=== PATIENT | female | born 1955 | race Caucasian/White ===

== ENCOUNTER 2020-11-02 15:53 | Inpatient (IN) | payer MEDICAID, OTHER ==
[~2020-11-02] VITALS: Ht 165.1 cm; Wt 65.0 kg
[2020-11-02] MEDS ORDERED: normal saline 1000ML IV soln IV ONE (16:30)
[2020-11-02] MEDS ORDERED: iohexol 350MG/ML 100ml bottle IV ONE (16:38)
[2020-11-02 17:09] LABS: BASOPHILS % (AUTO) 0.2 % (0-1); EOSINOPHILS % (AUTO) 0 % (0-6); HEMATOCRIT 45.5 % (35.0-45.0); HEMOGLOBIN 15.2 g/dl (12.0-16.0); LYMPHOCYTES # (AUTO) 0.8 X10'3 (1.1-4.8); LYMPHOCYTES % (AUTO) 9.3 % (21-51); MEAN CORPUSCULAR HGB CONC 33.5 g/dL (33.0-36.5); MEAN CORPUSCULAR VOLUME 86.5 FL (78-98); MEAN PLATELET VOLUME 8.1 FL (7.4-10.4); MONOCYTES # (AUTO) 0.7 X10'3 (0-0.9); NEUTROPHILS # (AUTO) 7.2 X10'3 (1.8-7.7); NEUTROPHILS % (AUTO) 82.5 % (42-75); PLATELET COUNT 261 X10'3 (140-440); RED BLOOD COUNT 5.25 X10'6 (4.20-5.60); RED CELL DISTRIBUTION WIDTH 12.9 % (11.5-14.5); WHITE BLOOD COUNT 8.7 X10'3 (4.5-11.0)
[2020-11-02 17:15] LABS: PARTIAL THROMBOPLASTIN TIME 30 SECONDS (22-32)
[2020-11-02 17:27] LABS: ALANINE AMINOTRANSFERASE 100 U/L (12-78); ALBUMIN 3.3 G/DL (3.4-5.0); ALBUMIN/GLOBULIN RATIO 0.7 (1.1-1.5); ALKALINE PHOSPHATASE 140 IU/L (46-116); ANION GAP 9 (8-16); ASPARTATE AMINO TRANSFERASE 122 U/L (10-37); BILIRUBIN,TOTAL 0.6 MG/DL (0.1-1.0); BLOOD UREA NITROGEN 11 MG/DL (7-18); BUN/CREATININE RATIO 14.9 (6.6-38.0); CALCIUM 9.1 MG/DL (8.5-10.1); CHLORIDE 102 MMOL/L (99-107); CREATININE 0.74 MG/DL (0.40-0.90); GLUCOSE 132 MG/DL (70-104); POTASSIUM 3.8 MMOL/L (3.5-5.1); SODIUM 138 MMOL/L (135-145); TOTAL CARBON DIOXIDE 26.9 MMOL/L (24-32); TOTAL PROTEIN 7.9 G/DL (6.4-8.2); eGFR 79 ML/MIN
[2020-11-02] MEDS ORDERED: NO HOME MEDS PO (17:56)
[2020-11-02] MEDS ORDERED: dexamethasone 4mg/ml inj IV SCH (18:55)
[2020-11-02 19:22] LABS: C-REACTIVE PROTEIN 10.32 MG/DL (0.0-0.5); LACTATE DEHYDROGENASE 516 U/L (81-234)
[2020-11-02] MEDS ORDERED: acetaminophen 325mg tablet PO PRN (19:50)
[2020-11-02] MEDS ORDERED: potassium Cl 40MEQ/1/2NS 520ml 520 ML IV PRN ×2 (19:50)
[2020-11-02] MEDS ORDERED: potassium Cl 20 mEq SR tablet PO PRN (19:50)
[2020-11-02] MEDS ORDERED: mag hydrox/Alum hydrox/simeth 30ml oral suspension PO PRN (19:50)
[2020-11-02] MEDS ORDERED: ondansetron/PF 4mg/2ml inj IV PRN (19:50)
[2020-11-02] MEDS ORDERED: magnesium hydroxide 30ml (MOM) UD suspension PO PRN (19:50)
[2020-11-02] MEDS: dexamethasone 4mg/ml inj IV SCH (20:00)
[2020-11-02] MEDS: K and/or MAG REPLACEMENT MC SCH (20:00)
[2020-11-02] MEDS: heparin, porcine 5000 units/ml vial SQ SCH (20:58)
[2020-11-02] MEDS: docusate sod 100mg capsule PO SCH (20:58)
[2020-11-03] MEDS: dexamethasone 4mg/ml inj IV SCH ×3 (02:05→20:11)
--- NOTE | 2020-11-03 03:30 | NUR ---
pt up to commode, had coughing episode. unable to recover 86% on 6L MD called, patient put on non rebreather, 12L given cough syrup per md order.
[2020-11-03] MEDS ORDERED: guaiFENesin/codeine phos 10ml UD oral syrup PO ONE (04:30)
[2020-11-03 04:41] LABS: BASOPHILS % (AUTO) 0.1 % (0-1); EOSINOPHILS % (AUTO) 0 % (0-6); HEMATOCRIT 45.1 % (35.0-45.0); HEMOGLOBIN 14.4 g/dl (12.0-16.0); LYMPHOCYTES # (AUTO) 1.1 X10'3 (1.1-4.8); LYMPHOCYTES % (AUTO) 15.4 % (21-51); MEAN CORPUSCULAR HEMOGLOBIN 28.6 PG (27.0-31.0); MEAN CORPUSCULAR HGB CONC 31.8 g/dL (33.0-36.5); MEAN CORPUSCULAR VOLUME 89.7 FL (78-98); MEAN PLATELET VOLUME 8.1 FL (7.4-10.4); MONOCYTES # (AUTO) 0.3 X10'3 (0-0.9); MONOCYTES % (AUTO) 4.4 % (2-12); NEUTROPHILS # (AUTO) 5.6 X10'3 (1.8-7.7); NEUTROPHILS % (AUTO) 80.1 % (42-75); PLATELET COUNT 228 X10'3 (140-440); RED BLOOD COUNT 5.02 X10'6 (4.20-5.60); RED CELL DISTRIBUTION WIDTH 13.4 % (11.5-14.5)
[2020-11-03 05:24] LABS: ALANINE AMINOTRANSFERASE 95 U/L (12-78); ALBUMIN 2.8 G/DL (3.4-5.0); ALBUMIN/GLOBULIN RATIO 0.6 (1.1-1.5); ALKALINE PHOSPHATASE 128 IU/L (46-116); ANION GAP 15 (8-16); ASPARTATE AMINO TRANSFERASE 91 U/L (10-37); BILIRUBIN,TOTAL 0.4 MG/DL (0.1-1.0); BLOOD UREA NITROGEN 9 MG/DL (7-18); BUN/CREATININE RATIO 11.1 (6.6-38.0); CALCIUM 8.2 MG/DL (8.5-10.1); CHLORIDE 108 MMOL/L (99-107); CREATININE 0.81 MG/DL (0.40-0.90); GLUCOSE 173 MG/DL (70-104); POTASSIUM 3.6 MMOL/L (3.5-5.1); SODIUM 145 MMOL/L (135-145); TOTAL CARBON DIOXIDE 22.3 MMOL/L (24-32); TOTAL PROTEIN 7.2 G/DL (6.4-8.2); eGFR 71 ML/MIN
[2020-11-03] MEDS: docusate sod 100mg capsule PO SCH ×2 (08:00→20:09)
[2020-11-03] MEDS: K and/or MAG REPLACEMENT MC SCH ×3 (08:00→20:00)
[2020-11-03] MEDS: heparin, porcine 5000 units/ml vial SQ SCH ×2 (09:01→20:09)
[2020-11-03] MEDS ORDERED: magnesium Cl slow-release 64mg tablet PO PRN (09:05)
[2020-11-03] MEDS ORDERED: magnesium 4gm in 100ml NS 100 ML IV PRN (09:05)
[2020-11-03 10:00] VITALS: BP 135/79
--- NOTE | 2020-11-03 10:09 | NUR ---
Okay to give daughter information.
--- NOTE | 2020-11-03 13:30 | NUR ---
Patient in room ORTHO 4015. I have received report from NAVEED Schultz and had the opportunity to ask questions and assume patient care.
[2020-11-03 14:00] VITALS: BP 141/73
[2020-11-03 17:00] VITALS: BP 150/80
--- NOTE | 2020-11-03 18:39 | NUR ---
Problems reprioritized. Patient report given, questions answered & plan of care reviewed with NAVEED Chavarria.
--- NOTE | 2020-11-03 18:40 | NUR ---
Patient in room ORTHO 4015. I have received report from rene LUCIO and had the opportunity to ask questions and assume patient care.
[2020-11-03 22:00] VITALS: BP 146/72
[2020-11-04 06:00] VITALS: BP 150/82
--- NOTE | 2020-11-04 06:17 | NUR ---
Problems reprioritized. Patient report given, questions answered & plan of care reviewed with Pauline LUCIO.
[2020-11-04 07:54] LABS: BASOPHILS % (AUTO) 0.1 % (0-1); EOSINOPHILS % (AUTO) 0 % (0-6); HEMATOCRIT 44.3 % (35.0-45.0); HEMOGLOBIN 14.8 g/dl (12.0-16.0); LYMPHOCYTES # (AUTO) 1.2 X10'3 (1.1-4.8); MEAN CORPUSCULAR HEMOGLOBIN 29.5 PG (27.0-31.0); MEAN CORPUSCULAR HGB CONC 33.4 g/dL (33.0-36.5); MEAN CORPUSCULAR VOLUME 88.3 FL (78-98); MEAN PLATELET VOLUME 8.4 FL (7.4-10.4); MONOCYTES # (AUTO) 0.9 X10'3 (0-0.9); MONOCYTES % (AUTO) 8.3 % (2-12); NEUTROPHILS # (AUTO) 8.6 X10'3 (1.8-7.7); NEUTROPHILS % (AUTO) 80.6 % (42-75); PLATELET COUNT 328 X10'3 (140-440); RED BLOOD COUNT 5.01 X10'6 (4.20-5.60); RED CELL DISTRIBUTION WIDTH 12.9 % (11.5-14.5); WHITE BLOOD COUNT 10.6 X10'3 (4.5-11.0)
[2020-11-04] MEDS: K and/or MAG REPLACEMENT MC SCH ×4 (08:00→19:32)
[2020-11-04 08:40] LABS: ALANINE AMINOTRANSFERASE 84 U/L (12-78); ALBUMIN 2.9 G/DL (3.4-5.0); ALBUMIN/GLOBULIN RATIO 0.6 (1.1-1.5); ALKALINE PHOSPHATASE 119 IU/L (46-116); ANION GAP 10 (8-16); ASPARTATE AMINO TRANSFERASE 49 U/L (10-37); BILIRUBIN,TOTAL 0.4 MG/DL (0.1-1.0); BLOOD UREA NITROGEN 15 MG/DL (7-18); BUN/CREATININE RATIO 20.5 (6.6-38.0); C-REACTIVE PROTEIN 5.47 MG/DL (0.0-0.5); CHLORIDE 106 MMOL/L (99-107); CREATININE 0.73 MG/DL (0.40-0.90); GLUCOSE 174 MG/DL (70-104); LACTATE DEHYDROGENASE 454 U/L (81-234); MAGNESIUM 2.7 MG/DL (1.5-2.4); PHOSPHORUS 3.3 MG/DL (2.3-4.5); POTASSIUM 3.3 MMOL/L (3.5-5.1); SODIUM 142 MMOL/L (135-145); TOTAL CARBON DIOXIDE 26.1 MMOL/L (24-32); TOTAL PROTEIN 7.4 G/DL (6.4-8.2); eGFR 80 ML/MIN
[2020-11-04] MEDS ORDERED: ALBUTEROL INHALER 1 PUFF/90 MCG INHALER IH PRN (08:50)
[2020-11-04] MEDS: dexamethasone 4mg/ml inj IV SCH ×2 (08:51→19:31)
[2020-11-04] MEDS: docusate sod 100mg capsule PO SCH ×2 (09:03→19:29)
[2020-11-04] MEDS: heparin, porcine 5000 units/ml vial SQ SCH ×2 (09:04→19:30)
[2020-11-04] MEDS: potassium Cl 20 mEq SR tablet PO PRN ×3 (09:10→18:26)
[2020-11-04 10:00] VITALS: BP 159/80
--- NOTE | 2020-11-04 10:13 | NUR ---
Patient in room ORTHO 4015. I have received report from NAVEED perkins and had the opportunity to ask questions and assume patient care.
[2020-11-04 14:00] VITALS: BP 146/78
[2020-11-04 18:00] VITALS: BP 133/75
--- NOTE | 2020-11-04 18:24 | NUR ---
Problems reprioritized. Patient report given, NAVEED pavon questions answered & plan of care reviewed with .
--- NOTE | 2020-11-04 18:33 | NUR ---
Patient in room ORTHO 4015. I have received report from Angela LUCIO and had the opportunity to ask questions and assume patient care.
[2020-11-04 22:00] VITALS: BP 145/81
[2020-11-05 02:00] VITALS: BP 145/100
--- NOTE | 2020-11-05 06:20 | NUR ---
Problems reprioritized. Patient report given, questions answered & plan of care reviewed with Nabeel LUCIO.
[2020-11-05 06:26] VITALS: BP 149/89
[2020-11-05] MEDS: heparin, porcine 5000 units/ml vial SQ SCH (07:09)
[2020-11-05] MEDS: dexamethasone 4mg/ml inj IV SCH (07:10)
[2020-11-05] MEDS: docusate sod 100mg capsule PO SCH (07:10)
[2020-11-05] MEDS: K and/or MAG REPLACEMENT MC SCH ×2 (08:00)
[2020-11-05 08:18] LABS: BASOPHILS % (AUTO) 0.3 % (0-1); EOSINOPHILS % (AUTO) 0 % (0-6); HEMATOCRIT 44.2 % (35.0-45.0); HEMOGLOBIN 14.7 g/dl (12.0-16.0); LYMPHOCYTES # (AUTO) 1.3 X10'3 (1.1-4.8); LYMPHOCYTES % (AUTO) 11.9 % (21-51); MEAN CORPUSCULAR HEMOGLOBIN 29.2 PG (27.0-31.0); MEAN CORPUSCULAR HGB CONC 33.3 g/dL (33.0-36.5); MEAN CORPUSCULAR VOLUME 87.7 FL (78-98); MEAN PLATELET VOLUME 8.8 FL (7.4-10.4); MONOCYTES # (AUTO) 0.9 X10'3 (0-0.9); MONOCYTES % (AUTO) 8.3 % (2-12); NEUTROPHILS # (AUTO) 8.8 X10'3 (1.8-7.7); NEUTROPHILS % (AUTO) 79.5 % (42-75); PLATELET COUNT 394 X10'3 (140-440); RED BLOOD COUNT 5.04 X10'6 (4.20-5.60); RED CELL DISTRIBUTION WIDTH 13.4 % (11.5-14.5); WHITE BLOOD COUNT 11.1 X10'3 (4.5-11.0)
[2020-11-05 08:45] LABS: D-DIMER 0.63 MG/L FEU (0-0.50)
[2020-11-05 08:56] LABS: ALANINE AMINOTRANSFERASE 98 U/L (12-78); ALBUMIN/GLOBULIN RATIO 0.7 (1.1-1.5); ALKALINE PHOSPHATASE 132 IU/L (46-116); ANION GAP 12 (8-16); ASPARTATE AMINO TRANSFERASE 44 U/L (10-37); BILIRUBIN,TOTAL 0.4 MG/DL (0.1-1.0); BLOOD UREA NITROGEN 19 MG/DL (7-18); BUN/CREATININE RATIO 25.3 (6.6-38.0); C-REACTIVE PROTEIN 2.39 MG/DL (0.0-0.5); CALCIUM 9.3 MG/DL (8.5-10.1); CHLORIDE 106 MMOL/L (99-107); CREATININE 0.75 MG/DL (0.40-0.90); GLUCOSE 120 MG/DL (70-104); LACTATE DEHYDROGENASE 438 U/L (81-234); MAGNESIUM 2.6 MG/DL (1.5-2.4); PHOSPHORUS 4.2 MG/DL (2.3-4.5); POTASSIUM 4.4 MMOL/L (3.5-5.1); SODIUM 144 MMOL/L (135-145); TOTAL CARBON DIOXIDE 25.7 MMOL/L (24-32); TOTAL PROTEIN 7.3 G/DL (6.4-8.2); eGFR 78 ML/MIN
[2020-11-05 10:00] VITALS: BP 144/76
[2020-11-05] MEDS ORDERED: ALBU6.7H9 IH (13:14)
[2020-11-05] MEDS ORDERED: DEC1T PO (13:14)
[2020-11-05 14:00] VITALS: BP 162/82
--- NOTE | 2020-11-05 14:07 | NUR ---
O2 Sat at rest on room air:_90_% If below 89%: Recovery O2 Sat at rest on ___LPM:___%:___% via (mask/nasal cannula, etc..) No further documentation is necessary. If O2 Sat did not drop below 89% on room air,ambulate patient on room air. O2 Sat while ambulating on room air:__86_% Recovery O2 Sat while ambulating on _3_LPM:_89_% No further documentation is necessary. If patient does not drop below 89% while ambulating, he/she does not qualify for home O2.
== END 2020-11-05 16:40 | disposition home or self-care (01) | DRG 177 ==
LOC: ER 15:54 → ED HOLD 19:51 → ORTHO 4S 11-03 09:20
PROVIDERS: ADMIT Internal Medicine; ATTEND Family Medicine
PROC: B32T1ZZ Computerized Tomography (CT Scan) of Left Pulmonary Artery using Low Osmolar Contrast (ICD-10-PCS; 2020-11-02)
PROC: B3201ZZ Computerized Tomography (CT Scan) of Thoracic Aorta using Low Osmolar Contrast (ICD-10-PCS; 2020-11-02)
PROC: B32S1ZZ Computerized Tomography (CT Scan) of Right Pulmonary Artery using Low Osmolar Contrast (ICD-10-PCS; 2020-11-02)
PROC: 5A0935A Assistance with Respiratory Ventilation, Less than 24 Consecutive Hours, High Flow/Velocity Cannula (ICD-10-PCS; principal; 2020-11-03)
DX: U07.1 COVID-19 (principal); J12.82 Pneumonia due to coronavirus disease 2019; J96.01 Acute respiratory failure with hypoxia; E87.6 Hypokalemia; R74.01 Elevation of levels of liver transaminase levels
CPT/HCPCS: 36415; 71045; 71275; 80053; 83605; 83615; 83735; 83880; 84100; 84145; 84484; 85025; 85379; 85610; 85730; 86140; 87040; 87081; 93005; 96360; 96361; 97110; 97116; 97161; 97530; 99285; G0378; J1100; J1644; J7030; Q9967

== ENCOUNTER 2024-07-13 15:54 | Emergency (ER) | payer MEDICAID, MEDICARE ==
[~2024-07-13] VITALS: Ht 157.5 cm; Wt 68.2 kg
[~2024-07-13 15:54] MED LIST: ALBU6.7H14 IH
[2024-07-13 15:56] VITALS: BP 149/73; PULSE 83; RESP 16; TEMP 97.6; O2SAT 98
--- NOTE | 2024-07-13 16:29 | RADIOLOGY REPORT ---
CLINICAL INDICATION: pain RIGHT WRIST TECHNIQUE: 3-view right wrist DI WRIST, COMPLETE (3VW MIN) Comparison: None FINDINGS/IMPRESSION: : There is no evidence of acute fracture or dislocation. Soft tissues are unremarkable. There is ulnar minus variance. 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
--- NOTE | 2024-07-13 16:48 | Physician Documentation ---
History of Present Illness ~ Chief Complaint: Wrist pain Stated Complaint: R WRIST PAIN Time Seen by MD: 16:08 Primary Medical Doctor: none HPI Patient is seen today with complaints of right wrist pain. Patient states she has been painting a lot over the last couple of days and also stretched her wrist in hyperextension and felt immediate pain and now has pain with supination and pronation and range of motion of her right wrist. She was concerned for an acute fracture. Patient has no other concern or complaint at this time. She denies any fever or chills or shortness of breath or chest pain or abdominal pain or nausea, vomiting, diarrhea. Patient also complains of excess cerumen and decreased hearing in her right ear. Tetanus within 5 years: No Medication Reconciliation Allergies: Coded Allergies: No Known Allergies (Unverified , 11/02/20) Scheduled PRN Albuterol Sulfate (Proventil Hfa), 2 PUFF IH Q4H PRN for SOB or wheezing Review of Systems Constitutional: Denies: chills, fever, weakness Eyes: Denies: pain, blurred vision ENT: Denies: ear pain, nose pain, throat pain, mouth pain Respiratory: Denies: cough, shortness of breath Cardiovascular: Denies: chest pain, palpitations Gastrointestinal: Denies: abdominal pain, nausea, vomiting Genitourinary: Denies: burning, dysuria Female Genitalia: Denies: vaginal discharge, pelvic pain Neurological: Denies: headache, dizziness Musculoskeletal: Denies: pain, swelling Integumentary: Denies: rash, lesions Allergic/Immunologic: Denies: hives, itching Hematologic/Lymphatic: Denies: no symptoms reported Psychiatric: Denies: depression, anxiety Physical Exam Vital Signs: Temperature: 97.6, Heart Rate: 83, Respiratory Rate: 16, BP: 149/73, Pulse Oximetry: 98, Weight: 68.180 Oxygen Flow Rate: 0 Physical Exam General: Awake and Alert, no acute distress. HEENT: On exam patient does have significant cerumen impaction of the right ear canal. TM is not visualized. Conjunctiva pink, Sclera clear, Mucus Membranes moist. Neck: Supple without masses and tenderness. Resp: Unlabored. Lungs clear to auscultation bilaterally. Heart: Regular Rate and rhythm, normal S1 and S2 without murmur, rub or gallop. Musculoskeletal: Patient on exam does have decreased range of motion of right wrist due to pain. Patient has pain elicited at the radial ulnar joint. Patient is neurovascularly intact distally. Motor function is intact distally. I do not appreciate any erythema or joint swelling or warmth. Extremities: No cyanosis,clubbing or edema. Skin: Warm and Dry. Progress Results/Orders Results/Orders Vital Signs 07/13/24 15:56 Temp 97.6 Pulse 83 Resp 16 B/P (MAP) 149/73 Pulse Ox 98 O2 Flow Rate 0 EKG/XRAY/CT/US/VASC/MRI Bone/Soft Tissue X-Ray (Ext.) : Additional Comment X-ray of right wrist and interpreted by myself today shows no sign of acute fracture, no osteolytic or blastic lesions, bones in anatomic alignment. 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 DIAGNOSTIC RADIOLOGY Patient: JUANPABLO TAVARES Medical Record: [id number] [facility] : 1955, Age: 68 Sex: Female Location: ER Patient Status: [facility] ER Service Date/Time: 07/13/241615 Ordering Physician: MICHELLE BRYANT NP Exam: WRIST, COMPLETE (3VW MIN) CLINICAL INDICATION: pain RIGHT WRIST TECHNIQUE: 3-view right wrist DI WRIST, COMPLETE (3VW MIN) Comparison: None FINDINGS/IMPRESSION: : There is no evidence of acute fracture or dislocation. Soft tissues are unremarkable. There is ulnar minus variance. 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 Electronically Signed by:ALVARO PELAEZ MD Date & Time: 07/13/241625 Dictated by: ALVARO PELAEZ MD Dictation date and time: 07/13/241625 Primary Care Provider: NO PRIMARY CARE PROVIDER cc: MICHELLE BRYANT NP ~ Medical Decision Making Findings Patient is seen today with complaints of right wrist pain. Patient states she has been painting a lot over the last couple of days and also stretched her wrist in hyperextension and felt immediate pain and now has pain with supination and pronation and range of motion of her right wrist. She was concerned for an acute fracture. Patient has no other concern or complaint at this time. She denies any fever or chills or shortness of breath or chest pain or abdominal pain or nausea, vomiting, diarrhea. Patient was given prescription of meloxicam 15 mg one tab once a day to be taken with food sent to patient's pharmacy. Patient declined Toradol shot today. Prescription for Debrox also sent to patient pharmacy and she will follow up outpatient for otic lavage. Return to ED with any worsening, concerning or changing symptoms. Departure Disposition: 01 HOME / SELF CARE / HOMELESS Impression: Primary Impression: Wrist joint pain Qualified Codes: M25.531 - Pain in right wrist Additional Impression: Cerumen impaction Qualified Codes: H61.21 - Impacted cerumen, right ear Condition: Fair Discharge Instructions: Wrist Pain, Adult Additional Instructions: Patient was given prescription of meloxicam 15 mg one tab once a day to be taken with food sent to patient's pharmacy. Patient declined Toradol shot today. Prescription for Debrox also sent to patient pharmacy and she will follow up outpatient for otic lavage. Return to ED with any worsening, concerning or changing symptoms. Referrals: NO PRIMARY CARE PROVIDER (PCP) Prescriptions Carbamide Peroxide (Debrox) 6.5 % Drops 5 DROP RIGHT EAR Q12H, #15 ML 0 Refills Prov: SANJU AG 07/13/24 Meloxicam (Meloxicam) 15 Mg Tablet 1 TAB PO DAILY for 30 Days, #30 TAB 0 Refills Prov: SANJU AG 07/13/24 Signature Scribe Signature: No scribe Attestation: No scribe SANJU AG July 13, 2024 16:48
[2024-07-13] MEDS ORDERED: MELO-102 PO (17:40)
[2024-07-13] MEDS ORDERED: CARB15DR91 RIGHT EAR (17:40)
== END 2024-07-13 17:53 | disposition home or self-care (01) ==
LOC: ER 15:55
DX: M25.531 Pain in right wrist (principal); H61.21 Impacted cerumen, right ear
CPT/HCPCS: 73110; 99283